=== PATIENT | male | born 1985 | race Asian ===

== ENCOUNTER 2019-09-24 12:12 | Outpatient (CLI) | payer OTHER | END 2019-09-24 12:17 | disposition short-term general hospital (02) | LOC: AMB 12:12 | DX: M54.5 Low back pain (principal); V89.2XXA Person injured in unspecified motor-vehicle accident, traffic, initial encounter; Y92.89 Other specified places as the place of occurrence of the external cause | CPT/HCPCS: A0425; A0427 ==

== ENCOUNTER 2019-09-24 12:34 | Emergency (ER) | payer OTHER ==
[~2019-09-24] VITALS: Ht 167.6 cm; Wt 81.6 kg
[2019-09-24 12:37] VITALS: BP 156/86; TEMP 97.5
== END 2019-09-24 13:54 | disposition home or self-care (01) ==
LOC: ED 12:34
DX: S33.5XXA Sprain of ligaments of lumbar spine, initial encounter (principal); V49.40XA Driver injured in collision with unspecified motor vehicles in traffic accident, initial encounter
CPT/HCPCS: 96372; 99283; J1885